=== PATIENT | female | born 1975 | race Caucasian/White ===

== ENCOUNTER → 2019-03-26 | Outpatient (CLI) | payer OTHER ==
[2019-03-26 07:44] LABS: Basophils # (A) 0.1 k/uL (0-0.2); Basophils % (A) 1 %; Eosinophils # (A) 0.1 k/uL (0-0.7); Eosinophils % (A) 2 %; HCT 46.2 % (34.0-46.0); HGB 14.8 gm/dL (11.4-16.0); Lymphocytes # (A) 1.6 k/uL (1.0-4.8); Lymphocytes % (A) 34 %; MCH 29.5 pg (25.0-35.0); MCV 92.3 fL (80.0-100.0); Mean Platelet Volume 7.3; Monocytes # (A) 0.2 k/uL (0-1.0); Monocytes % (A) 5 %; Neutrophils # (A) 2.7 k/uL (1.3-7.7); Neutrophils % (A) 56 %; Platelet Count 227 k/uL (150-450); RBC 5.01 m/uL (3.80-5.40); RDW 12.6 % (11.5-15.5); WBC 4.8 k/uL (3.8-10.6)
[2019-03-26 12:34] LABS: African American GFR (CKD) 105.4 (60.0-200.0); Albumin 4.5 g/dL (3.80-4.90); Albumin/Globulin Ratio 1.88 (1.60-3.17); Anion Gap 7.6 mmol/L (4.00-12.00); BUN/Creat Ratio 16.25 Ratio (12.00-20.00); Calcium 9.4 mg/dL (8.7-10.3); Carbon Dioxide 27.4 mmol/L (21.6-31.8); Chol/HDL Ratio 2.25; Globulin 2.4 g/dL (1.6-3.3); LDL Cholesterol,Calculated 76.8 mg/dL (0.0-131.0); Potassium 4.2 mmol/L (3.5-5.5); Total Bilirubin 2.4 mg/dL (0.2-1.2); Total Protein 6.9 g/dL (6.2-8.2); VLDL Calculation 13.2 mg/dL (5.00-40.00)
[2019-03-26 12:43] LABS: T4, Free (Free Thyroxine) 1.2 ng/dL (0.80-1.80)
[2019-03-26 13:04] LABS: Mumps Virus IgG Ab Interp POSITIVE (NEGATIVE); Mumps Virus IgG Antibody 3.3 AI
== END | disposition home or self-care (01) ==
LOC: LABWHC1 07:23
PROVIDERS: ATTEND Nurse Practitioner Family
DX: Z00.01 Encounter for general adult medical examination with abnormal findings (principal); E55.9 Vitamin D deficiency, unspecified
CPT/HCPCS: 36415; 80053; 80061; 82306; 82607; 84439; 84443; 85025; 86735; 86762; 86765

== ENCOUNTER → 2019-04-23 | Outpatient (CLI) | payer OTHER ==
[2019-04-23 14:21] LABS: African American GFR (CKD) 123.9 (60.0-200.0); Albumin 4.3 g/dL (3.80-4.90); Albumin/Globulin Ratio 2.05 (1.60-3.17); Anion Gap 9.5 mmol/L (4.00-12.00); BUN/Creat Ratio 17.14 Ratio (12.00-20.00); Carbon Dioxide 25.5 mmol/L (21.6-31.8); Globulin 2.1 g/dL (1.6-3.3); Non-African American GFR(CKD) 106.9 (60.0-200.0); Potassium 3.7 mmol/L (3.5-5.5); Total Bilirubin 2.2 mg/dL (0.3-1.2); Total Protein 6.4 g/dL (6.2-8.2)
== END | disposition home or self-care (01) ==
LOC: LABWHC1 06:34
PROVIDERS: ATTEND Family Medicine
DX: R94.5 Abnormal results of liver function studies (principal)
CPT/HCPCS: 36415; 80053

== ENCOUNTER → 2020-07-27 | Outpatient (CLI) | payer OTHER | END | disposition home or self-care (01) | LOC: RADMRIMAIN 06:07 | PROVIDERS: ATTEND Family Medicine | DX: Z53.9 Procedure and treatment not carried out, unspecified reason (principal) ==

== ENCOUNTER → 2021-04-14 | Outpatient (CLI) | payer BC ==
--- NOTE | 2021-04-15 10:11 | CT ---
EXAMINATION TYPE: CT angio head neck DATE OF EXAM: 04/14/2021 HISTORY: coital headache, history of stroke COMPARISON: CT brain same date CT DLP: 1603 mGycm. Automated Exposure Control for Dose Reduction was Utilized. TECHNIQUE: CTA scan of the neck is performed with IV Contrast, patient injected with 65 mL of Isovue 370, axial images are obtained, coronal and sagittal reformatted images are reviewed. 3D reconstruct ed images are created on an independent workstation and reviewed. FINDINGS: Carotid/Vascular Structures: The thoracic aorta, innominate, left and right subclavian, left and righ t common carotid arteries are widely patent, internal and external carotid arteries are patent. Circl e of Diaz is patent, anterior posterior circulation is unremarkable, there is no evident dissection , embolus, aneurysm, or stenosis. There are cerebral vascular calcifications. Other: Breast prostheses are noted incidentally. Visualized upper lungs show some questionable mild e mphysematous change. IMPRESSION: No significant abnormality is seen. NASCET criteria was used in interpretation of this exam?
--- NOTE | 2021-04-15 10:18 | CT ---
EXAMINATION TYPE: CT brain wo con DATE OF EXAM: 04/14/2021 COMPARISON: None HISTORY: Z86.73 Hx stroke, G44.[address] DLP: 1603 mGycm. Automated Exposure Control for Dose Reduction was Utilized. TECHNIQUE: CT scan of the head is performed without contrast. FINDINGS: There is no acute intracranial hemorrhage, mass effect, or midline shift identified. The ventricles and sulci are within normal limits in size. Periventricular white matter shows some minim al patchy low-attenuation. The globes are intact and the visualized sinuses are remarkable for mucosa l disease, lobular soft tissue within the bilateral maxillary sinuses, there is air-fluid levels note d bilaterally. Suspect a small choroidal fissure cyst on the left, axial image #24, coronal image 30. There are cerebral vascular calcifications present. IMPRESSION: No acute intracranial hemorrhage, mass effect, or midline shift is seen. Correlate for b ilateral maxillary sinusitis, nonspecific white matter demyelination, brain MRI may be of benefit.
--- NOTE | 2021-04-15 16:00 | ECHOF ---
Referral Reason:Z86.73 Hx stroke, G44.82 Coital headache MEASUREMENTS -------- HEIGHT: 172.7 cm WEIGHT: 59.0 kg BP: 100/70 IVSd: 1.0 cm (0.6 - 1.1) LVIDd: 3.3 cm (3.9 - 5.3) LVPWd: 1.0 cm (0.6 - 1.1) EDV(Teich): 46 ml IVSs: 1.3 cm LVIDs: 2.3 cm LVPWs: 1.7 cm %IVS Thck: 36 % ESV(Teich): 19 ml EF(Teich): 59 % %FS: 30 % SV(Teich): 27 ml LA Diam: 2.9 cm (2.7 - 3.8) RVIDd: 3.4 cm (< 3.3) LALs A4C: 4.1 cm LAAs A4C: 14.6 cm LAESV A-L A4C: 44 ml LAESV MOD A4C: 42 ml LALs A2C: 5.4 cm LAAs A2C: 17.5 cm LAESV A-L A2C: 48 ml LAESV MOD A2C: 43 ml LAESV(A-L): 52 ml LAESV Index (A-L): 30.80 ml/m Ao Diam: 3.1 cm (2.0 - 3.7) AV Cusp: 2.3 cm (1.5 - 2.6) EPSS: 0.4 cm MV E Maximilian: 0.85 m/s MV DecT: 173 ms MV Dec [place]: 4.9 m/s MV A Maximilian: 0.55 m/s MV E/A Ratio: 1.55 MV PHT: 50 ms MV EF SLOPE: 58.82 mm/s (70 - 150) MV EXCURSION: 16.92 mm (> 18.000) FINDINGS -------- Sinus rhythm. This was a technically good study. The left ventricular size is normal. Left ventricular wall thickness is normal. Overall left vent ricular systolic function is normal with, an EF between 60 - 65 %. The right ventricle is mildly enlarged. Normal LA size by volume 22+/-6 ml/m2. The right atrium is normal in size. Interatrial and interventricular septum intact. The aortic valve is trileaflet, and appears structurally normal. No aortic stenosis or regurgitation. The mitral valve is normal. The tricuspid valve appears structurally normal. Unable to estimate RVSP due to inadequate TR jet s pectral doppler profile. Trace/mild (physiologic) pulmonic regurgitation. The aortic root size is normal. Normal inferior vena cava with normal inspiratory collapse consistent with estimated right atrial pre ssure of 5 mmHg. There is no pericardial effusion. CONCLUSIONS -------- 1. The left ventricular size is normal. 2. Left ventricular wall thickness is normal. 3. Overall left ventricular systolic function is normal with, an EF between 60 - 65 %. 4. The right ventricle is mildly enlarged. 5. Normal LA size by volume 22+/-6 ml/m2. 6. The aortic valve is trileaflet, and appears structurally normal. No aortic stenosis or regurgitati on. 7. Trace/mild (physiologic) pulmonic regurgitation. 8. There is no pericardial effusion. METAL CASKET ASSEMBLER: Lamar So RDCS
== END | disposition home or self-care (01) ==
LOC: RADECHMAIN 16:22
PROVIDERS: ATTEND Psychiatry & Neurology Neurology
DX: G44.82 Headache associated with sexual activity (principal); I37.1 Nonrheumatic pulmonary valve insufficiency; Z86.73 Personal history of transient ischemic attack (TIA), and cerebral infarction without residual deficits
CPT/HCPCS: 93306; 70496; 70450; 70498; Q9967

== ENCOUNTER → 2021-07-05 | Outpatient (CLI) | payer BC ==
--- NOTE | 2021-07-07 08:52 | MM ---
Reason for exam: screening (asymptomatic). Last mammogram was performed 2 years and 5 months ago. History: Family history of breast cancer in maternal aunt at age 50 and breast cancer in paternal grandmother at age 50. Physical Findings: A clinical breast exam by your physician is recommended on an annual basis and results should be correlated with mammographic findings. MG 3D Screen Mammo Imp/Cad Bilateral CC, MLO, and ID view(s) were taken. Prior study comparison: January 30, 2019, mammogram, performed at [facility]. October 20, 2017, mammogram, performed at [facility]. The breast tissue is heterogeneously dense. This may lower the sensitivity of mammography. Bilateral implants are intact. No significant changes when compared with prior studies. ASSESSMENT: Negative, BI-RAD 1 RECOMMENDATION: Routine screening mammogram of both breasts in 1 year.
== END | disposition home or self-care (01) ==
LOC: RADMAMWWP 16:13
PROVIDERS: ATTEND Family Medicine
DX: Z12.31 Encounter for screening mammogram for malignant neoplasm of breast (principal); Z80.3 Family history of malignant neoplasm of breast
CPT/HCPCS: 77063; 77067

== ENCOUNTER → 2022-08-02 | Outpatient (CLI) | payer BC ==
--- NOTE | 2022-08-03 09:23 | CA ---
Transthoracic Echo Report Name: Roseann Ramirez Age: 47 Gender: F : 1975 Exam Date: 08/02/2022 13:20 Exam Location: [place] [facility] Ht (in): 68 Wt (lb): 140 Ordering Physician: Ahmet Garcia MD Attending/Referring Phys: Ahmet Garcia MD Sound Truck Operator Lamar So [facility] Procedure CPT: Indications: I51.7 Cardiomegaly Cardiac Hx: Technical Quality: Good Contrast 1: Total Dose (mL): Contrast 2: Total Dose (mL): MEASUREMENTS (Male / Female) Normal Values 2D ECHO LV Diastolic Diameter PLAX 4.2 cm 4.2 - 5.9 / 3.9 - 5.3 cm LV Systolic Diameter PLAX 2.7 cm IVS Diastolic Thickness 1.0 cm 0.6 - 1.0 / 0.6 - 0.9 cm LVPW Diastolic Thickness 0.9 cm 0.6 - 1.0 / 0.6 - 0.9 cm LV Relative Wall Thickness 0.4 RV Internal Dim ED PLAX 3.1 cm LA Systolic Diameter LX 3.1 cm 3.0 - 4.0 / 2.7 - 3.8 cm LA Volume 39.2 cm??? 18 - 58 / 22 - 52 cm??? M-MODE Aortic Root Diameter MM 2.9 cm MV E Point Septal Separation 0.5 cm AV Cusp Separation MM 2.3 cm DOPPLER AV Peak Velocity 131.5 cm/s AV Peak Gradient 6.9 mmHg MV Area PHT 4.9 cm??? Mitral E Point Velocity 111.7 cm/s Mitral A Point Velocity 54.5 cm/s Mitral E to A Ratio 2.0 MV Deceleration Time 154.8 ms MV E' Velocity 9.0 cm/s Mitral E to MV E' Ratio 12.4 FINDINGS Left Ventricle Left ventricular ejection fraction is estimated at 55-60 %. Left ventricular cavity size normal. Left ventricular wall thickness normal. Right Ventricle Normal right ventricular size and function. No TR jet Right Atrium Normal right atrial size. Left Atrium Normal left atrial size. Mitral Valve Structurally normal mitral valve. Trace to mild mitral regurgitation. Aortic Valve Trileaflet aortic valve. Tricuspid Valve Structurally normal tricuspid valve. No tricuspid stenosis, regurgitation or prolapse. Pulmonic Valve Structurally normal pulmonic valve. No pulmonic regurgitation. Pericardium Normal pericardium. No pericardial effusion. Aorta Normal size aortic root and proximal ascending aorta. CONCLUSIONS Left ventricular ejection fraction 55-60% Trace to mild mitral regurgitation No pericardial effusion Previewed by: Dr. Adalberto Figueroa DO (Electronically Signed) Final Date: 03 August 2022 09:22
== END | disposition home or self-care (01) ==
LOC: RADECHMAIN 13:15
PROVIDERS: ATTEND Family Medicine
DX: I07.1 Rheumatic tricuspid insufficiency (principal)
CPT/HCPCS: 93306

== ENCOUNTER → 2022-11-16 | Outpatient (CLI) | payer OTHER ==
--- NOTE | 2022-11-16 07:40 | US ---
EXAMINATION TYPE: US abdomen complete DATE OF EXAM: 11/16/2022 COMPARISON: NONE CLINICAL INDICATION: Female, 47 years old with history of R74.8 ABN LEVELS; Elevated liver enzyme lev el. TECHNIQUE: Multiple sonographic images of the abdomen are obtained. FINDINGS: EXAM MEASUREMENTS: Liver Length: 14.1 cm Gallbladder Wall: 0.22 cm CBD: 0.55 cm Spleen: 10.0 cm Right Kidney: 11.3 x 6.3 x 4.1 cm Left Kidney: 11.3 x 4.7 x 4.5 cm MACHINE TOOL REBUILDER NOTES: Limited due to gas. Pancreas: Limited visibility of tail. Liver: Very coarse in echotexture/heterogeneous. No suspicious ulcerations. Gallbladder: wnl Evidence for sonographic Storey's sign: No CBD: Measures upper limits Spleen: Appears wnl Right Kidney: No hydronephrosis or masses seen Left Kidney: Hyperechoic focus seen lower pole: 0.3 x 0.3 x 0.2 cm. Upper IVC: Appears wnl Abd Aorta: Appears wnl IMPRESSION: 1. Coarse echotexture to liver suggestive of hepatocellular disease correlate with serum markers. 2. No evidence for acute process. 3. Left inferior renal pole calculus.
== END | disposition home or self-care (01) ==
LOC: RADUSWWP 06:47
PROVIDERS: ATTEND Family Medicine
DX: N20.0 Calculus of kidney (principal); R74.8 Abnormal levels of other serum enzymes
CPT/HCPCS: 76700

== ENCOUNTER → 2023-11-29 | Outpatient (CLI) | payer OTHER ==
--- NOTE | 2023-11-29 09:34 | US ---
EXAMINATION TYPE: US abdomen complete DATE OF EXAM: 11/29/2023 COMPARISON: NONE CLINICAL INDICATION: Female, 48 years old with history of R74.8 ELEVATED LFT; elevated bilirubin TECHNIQUE: Multiple sonographic images of the abdomen are obtained. FINDINGS: EXAM MEASUREMENTS: Liver Length: 13.3 cm Gallbladder Wall: 0.13 cm CBD: 0.36 cm Spleen: 9.4 cm Right Kidney: 10.7 x 5.6 x 4.1 cm Left Kidney: 11.3 x 4.8 x 4.4 cm PATHOLOGY LABORATORY TECHNOLOGIST NOTES: Pancreas: limited due to bowel gas, parts seen appear wnl Liver: heterogeneous Gallbladder: wnl Evidence for sonographic Storey's sign: No CBD: wnl Spleen: wnl Right Kidney: wnl Left Kidney: wnl Upper IVC: wnl Abd Aorta: wnl The liver is heterogenous in appearance without focal lesion identified. No intrahepatic biliary otf t dilatation identified. No liver surface nodularity demonstrated. The intrahepatic portion of the IV C and proximal abdominal aorta are within normal limits. There is no evidence of cholelithiasis. Co mmon bile duct is unremarkable. The visualized portions of the pancreas are homogenous. The spleen is unremarkable. Kidneys are symmetric and free of hydronephrosis. No renal lesions are seen. IMPRESSION: Similar coarse echotexture of the liver suggesting hepatocellular disease. Correlate with serum marke rs. Otherwise no evidence for acute process. No biliary duct dilatation.
== END | disposition home or self-care (01) ==
LOC: RADUSWWP 06:58
PROVIDERS: ATTEND Family Medicine
DX: R74.8 Abnormal levels of other serum enzymes (principal)
CPT/HCPCS: 76700

== ENCOUNTER → 2023-11-29 | Outpatient (CLI) | payer OTHER ==
--- NOTE | 2023-11-30 08:25 | MM ---
Reason for Exam: Screening (asymptomatic). Last mammogram was performed 1 year(s) and 1 month(s) ago. Patient History: Menarche at age 19. First Full-Term at age 23. Hysterectomy at age 36. Postmenopausal. Patient has history of breast feeding. Paternal grandmother had breast cancer, age 50. Maternal aunt had breast cancer, age 50. Risk Values: Kavita 5 year model risk: 0.7%. NCI Lifetime model risk: 7.7%. Prior Study Comparison: 10/20/2017 Screening Mammogram, [facility]. 01/30/2019 Screening Mammogram, [facility]. 07/05/2021 Bilateral Screening Mammogram, [facility]. 10/24/2022 Bilateral MG screening mammo implant/CAD, Unknown. Tissue Density: The breasts are heterogeneously dense, which may obscure small masses. Findings: Analyzed By CAD. No suspicious grouped calcifications. There is a nodular density along the lower outer margin right breast for which spot compression view recommended. Bilateral breast implant surgery. Overall Assessment: Incomplete: need additional imaging evaluation, BI-RAD 0 Management: Diagnostic Mammogram of the right breast. . Patient should continue monthly self-breast exams. A clinical breast exam by your physician is recommended on an annual basis. This exam should not preclude additional follow-up of suspicious palpable abnormalities. Note on Kavita scores and lifetime risk: 1. A Kavita score greater than 3% is considered moderate risk. If this is the case, consider specialist referral to assess eligibility for a risk reducing agent. 2. If overall lifetime risk for the development of breast cancer is 20% or higher, the patient may qualify for future screening with alternating mammogram and breast MRI. Electronically signed and approved by: Shakir Lopez M.D. Radiologis
== END | disposition home or self-care (01) ==
LOC: RADMAMWWP 06:55
PROVIDERS: ATTEND Obstetrics & Gynecology
DX: Z12.31 Encounter for screening mammogram for malignant neoplasm of breast (principal); Z78.0 Asymptomatic menopausal state; Z80.3 Family history of malignant neoplasm of breast; R92.333 Mammographic heterogeneous density, bilateral breasts
CPT/HCPCS: 77063; 77067

== ENCOUNTER → 2023-12-05 | Outpatient (CLI) | payer OTHER ==
--- NOTE | 2023-12-05 07:55 | USB ---
Reason for Exam: Additional evaluation requested from abnormal screening. Patient History: Menarche at age 19. First Full-Term at age 23. Hysterectomy at age 36. Postmenopausal. Patient has history of breast feeding. Paternal grandmother had breast cancer, age 50. Maternal aunt had breast cancer, age 50. Risk Values: Kavita 5 year model risk: 0.7%. NCI Lifetime model risk: 7.7%. Technique: Method: Targeted. Prior Study Comparison: 07/05/2021 Bilateral Screening Mammogram, [facility]. 10/24/2022 Bilateral MG screening mammo implant/CAD, Unknown. 11/29/2023 Bilateral MG 3D screen mammo imp/cad., [facility]. Findings: The lower outer quadrant of the right breast, the axilla of the right breast and the retroareolar of the right breast were scanned. Small cyst is identified the right 8:00 position 4 cm from the nipple measuring 4 x 2 mm. No evidence for solid mass. Breast implant is identified. Overall Assessment: Benign, BI-RAD 2 Management: Screening Mammogram of both breasts in 1 year. A clinical breast exam by your physician is recommended on an annual basis and results should be correlated with mammographic findings. This exam should not preclude additional follow-up of suspicious palpable abnormalities. Results were given to the patient verbally at the time of exam. Electronically signed and approved by: Aaron Osborn M.D. Radiologis
--- NOTE | 2023-12-05 08:12 | MM ---
Reason for Exam: Additional evaluation requested from abnormal screening. Last screening mammogram was performed less than 1 month ago. Patient History: Menarche at age 19. First Full-Term at age 23. Hysterectomy at age 36. Postmenopausal. Patient has history of breast feeding. Paternal grandmother had breast cancer, age 50. Maternal aunt had breast cancer, age 50. Risk Values: Kavita 5 year model risk: 0.7%. NCI Lifetime model risk: 7.7%. Tissue Density: Right: The breasts are heterogeneously dense, which may obscure small masses. Findings: Analyzed By CAD. Breast implant is intact. Nodular density persists lower outer right breast measuring approximately 6 mm mammographically. Ultrasound is recommended. Overall Assessment: Incomplete: need additional imaging evaluation, BI-RAD 0 Management: Diagnostic Breast Ultrasound of the right breast. . Results were given to the patient verbally at the time of exam. Patient should continue monthly self-breast exams. A clinical breast exam by your physician is recommended on an annual basis. This exam should not preclude additional follow-up of suspicious palpable abnormalities. Note on Kavita scores and lifetime risk: 1. A Kavita score greater than 3% is considered moderate risk. If this is the case, consider specialist referral to assess eligibility for a risk reducing agent. 2. If overall lifetime risk for the development of breast cancer is 20% or higher, the patient may qualify for future screening with alternating mammogram and breast MRI. Electronically signed and approved by: Aaron Osborn M.D. Radiologis
== END | disposition home or self-care (01) ==
LOC: RADMAMWWP 06:58
PROVIDERS: ATTEND Obstetrics & Gynecology
DX: R92.333 Mammographic heterogeneous density, bilateral breasts (principal); R92.8 Other abnormal and inconclusive findings on diagnostic imaging of breast; N60.01 Solitary cyst of right breast; Z78.0 Asymptomatic menopausal state; Z80.3 Family history of malignant neoplasm of breast
CPT/HCPCS: 77061; 77065

== ENCOUNTER → 2024-11-13 | Outpatient (CLI) | payer OTHER ==
--- NOTE | 2024-11-13 09:22 | US ---
EXAMINATION TYPE: US liver DATE OF EXAM: 11/13/2024 COMPARISON: US 11/29/2023 CLINICAL INDICATION: Female, 49 years old with history of R79.89; Abnormal labs TECHNIQUE: Grayscale and color Doppler imaging of the right upper quadrant. FINDINGS: EXAM MEASUREMENTS: Liver Length: 13.9 cm Gallbladder Wall: 0.2 cm CBD: 0.5 cm, color Doppler imaging was utilized to isolate the common bile duct for measurement. Right Kidney: 10.6 x 5.4 x 4.8 cm CAD MANAGER NOTES: Exam limited by overlying bowel gas. Pancreas: Portions visualized wnl, tail obscured by overlying bowel gas Liver: Appears heterogeneous Gallbladder: wnl Evidence for sonographic Storey's sign: No CBD: wnl Right Kidney: No hydronephrosis or masses seen IMPRESSION: No evidence for acute process. Heterogenous liver correlate for hepatocellular disease. [facility] Timothy Duron, , 11/13/2024 9:19 AM
[2024-11-13 10:29] LABS: Basophils # (A) 0.04 X 10*3/uL (0.00-0.10); Basophils % (A) 0.6 %; Eosinophils # (A) 0.08 X 10*3/uL (0.04-0.35); Eosinophils % (A) 1.3 %; HCT 44.0 % (37.2-46.3); HGB 14.1 g/dL (12.0-15.0); Immature Grans, Automated 0.30 %; Lymphocytes # (A) 1.75 X 10*3/uL (0.90-5.00); Lymphocytes % (A) 28.0 %; MCH 28.7 pg (27.0-32.0); MCHC 32.0 g/dL (32.0-37.0); MCV 89.6 FL (80.0-97.0); Monocytes # (A) 0.43 X 10*3/uL (0.20-1.00); Monocytes % (A) 6.9 %; NRBC Per 100 WBC 0 X 10*3/uL (0.00-0.01); Neutrophils # (A) 3.94 X 10*3/uL (1.80-7.70); Neutrophils % (A) 62.9 %; Platelet Count 263 X 10*3/uL (140-440); RBC 4.91 X 10*6/uL (4.10-5.20); RDW 13.6 % (11.5-14.5); WBC 6.26 X 10*3/uL (4.50-10.00)
[2024-11-13 10:58] LABS: ALT 25 U/L (8-44); AST 29 U/L (13-35); Albumin 4.5 g/dL (3.8-4.9); Albumin/Globulin Ratio 1.88 Ratio (1.60-3.17); Alkaline Phosphatase 59 U/L (41-126); Anion Gap 8.70 mmol/L (4.00-12.00); BUN/Creat Ratio 18.57 Ratio (12.00-20.00); Blood Urea Nitrogen 13.0 mg/dL (9.0-27.0); Calcium 9.3 mg/dL (8.7-10.3); Carbon Dioxide 25.3 mmol/L (21.6-31.8); Chloride 105 mmol/L (96-109); Cholesterol 194.00 mg/dL (0.00-200.00); GGT 6 U/L (0-38); Globulin 2.4 g/dL (1.6-3.3); Glucose 95 mg/dL (70-110); HDL Cholesterol 71.10 mg/dL (40.00-60.00); LDL Cholesterol,Calculated 97.7 mg/dL (0.0-131.0); Potassium 4.4 mmol/L (3.5-5.5); Sodium 139 mmol/L (135-145); Total Protein 6.9 g/dL (6.2-8.2); Triglycerides 126.00 mg/dL (0.00-149.00); VLDL Calculation 25.20 mg/dL (5.00-40.00)
== END | disposition home or self-care (01) ==
LOC: RADUSWWP 07:08
PROVIDERS: ATTEND Family Medicine
DX: R79.89 Other specified abnormal findings of blood chemistry (principal); K76.89 Other specified diseases of liver
CPT/HCPCS: 76705; 80053; 80061; 82977; 83036; 84443; 85025